=== PATIENT | male | born 1970 | race Caucasian/White ===

== ENCOUNTER 2018-02-16 07:09 | Day surgery (SDC) | payer BC ==
[~2018-02-16] VITALS: Ht 172.7 cm; Wt 71.5 kg
[2018-02-16] VITALS (8 sets, daily range): BP systolic 102–119; BP diastolic 71–90; PULSE 59–73; TEMP 97
[~2018-02-16 07:09] MED LIST: DEXAMETHASONE1 MG/ML PO; FISH OIL 1000MG1 CAP; NIACIN250 M2 PO
[2018-02-16] MEDS ORDERED: FISH OIL 500 M1 EAC1 PO (07:32)
[2018-02-16] MEDS ORDERED: NIACIN250 M2 PO (07:33)
[2018-02-16] MEDS ORDERED: LIPITOR 10MG10 MG PO (07:33)
[2018-02-16] MEDS ORDERED: COPAXONE40 MG/ML SQ (07:33)
[2018-02-16] MEDS ORDERED: MULTIPLE VITAMI1 CAP PO (07:34)
[2018-02-16] MEDS ORDERED: MASON NATURAL2000 IU PO (07:35)
== END 2018-02-16 10:45 | disposition home or self-care (01) ==
LOC: SDCO 07:09
DX: Z12.11 Encounter for screening for malignant neoplasm of colon (principal); Z80.0 Family history of malignant neoplasm of digestive organs; Z83.71 Family history of colonic polyps; D12.8 Benign neoplasm of rectum; D12.0 Benign neoplasm of cecum; K57.30 Diverticulosis of large intestine without perforation or abscess without bleeding
CPT/HCPCS: J2250; J2405; J3010

== ENCOUNTER 2021-08-27 07:01 | Day surgery (SDC) | payer BC ==
[~2021-08-27] VITALS: Ht 172.7 cm; Wt 72.9 kg
[~2021-08-27 07:01] MED LIST changes: +COPAXONE40 MG/ML SQ; +FISH OIL 500 M1 EAC1 PO; +LIPITOR 10MG10 MG PO; +MASON NATURAL2000 IU PO; +MULTIPLE VITAMI1 TA5 PO
[2021-08-27 07:26] VITALS: BP 112/85; PULSE 69; TEMP 97.6
[2021-08-27 08:25] VITALS: BP 99/73; PULSE 66; TEMP 97.3
--- NOTE | 2021-08-27 08:25 | NUR ---
Pt arrived from endo suite on cart and was able to ambulate to chair with minimal difficulty. Vitals obtained. Verbal report obtained from MAUREEN Baeza. Pt served wheat toast with butter and jam, and apple juice. Call cates is within reach at side table. Will continue to monitor per intervals.
[2021-08-27 08:40] VITALS: BP 112/77; PULSE 58
--- NOTE | 2021-08-27 08:40 | NUR ---
Vitals obtained. Pt denies nausea. No vomiting. Call actes remains within reach on side table.
[2021-08-27 08:55] VITALS: BP 115/74; PULSE 60
--- NOTE | 2021-08-27 08:55 | NUR ---
Vitals obtained. DC instructions and educational material reviewed. Questions answered by RN. IV discontinued. Catheter tip intact. Pressure dressing applied. No redness or swelling noted. Pt denied needing assistance changing into personal clothes. Call cates remains within reach.
--- NOTE | 2021-08-27 09:10 | NUR ---
is in to speak with the pt.
--- NOTE | 2021-08-27 09:13 | NUR ---
Pt dismissed from endo via wheelchair to pt entrence with his by MAUREEN Alcantar. Pt has DC packet and personal belongings. Pt was transferred into the care of his , who is present to drive.
== END 2021-08-27 09:14 | disposition home or self-care (01) ==
LOC: SDCO 07:01
DX: Z12.11 Encounter for screening for malignant neoplasm of colon (principal); K57.30 Diverticulosis of large intestine without perforation or abscess without bleeding; Z86.010 Personal history of colon polyps; Z83.71 Family history of colonic polyps
CPT/HCPCS: J2704; J7120